=== PATIENT | male | born 1985 | race American Indian/Alaskan Native ===

== ENCOUNTER 2021-12-09 03:42 | Emergency (ER) | payer SELFPAY ==
[2021-12-09 05:05] VITALS: BP 115/81
[2021-12-09 05:39] LABS: Bilirubin,Urine Negative (Negative); Color,Urine Yellow (Yellow); Mucus,Urine FEW /HPF
[2021-12-09 05:40] LABS: Blood,Urine Negative (Negative); PH,Urine 6.5 (5.0-7.0); Protein,Urine <15 mg/dL mg/dL (Negative); Urobilinogen,Urine < 2.0 mg/dL (<2.0)
== END 2021-12-09 10:23 | disposition left against medical advice (07) ==
LOC: ED 03:42
DX: J02.9 Acute pharyngitis, unspecified (principal); R36.9 Urethral discharge, unspecified; Z53.21 Procedure and treatment not carried out due to patient leaving prior to being seen by health care provider
CPT/HCPCS: 81001